=== PATIENT | female | born 1970 | race Caucasian/White ===

== ENCOUNTER → 2019-05-02 | Outpatient (CLI) | payer OTHER ==
[~2019-05-02] MED LIST: ACET500 PO; ALBU90I INH; AMOCLA875 PO; AMOX500 PO; ATEN25 PO; ATEN50 PO; AZIT250 PO; CEPH500 PO; CIPHYDOTSU OT; CLON.5 PO; CODGUAEL PO; CYCL10 PO; Crutch1 EACH MISC; DILT120 PO; DILT180 PO; DULO30 PO; DULO60; DULO60 PO; ENOX80I SC; FAMO40 PO; FURO20 PO; GUAI600T33 PO; HYDACE5 PO; IBUP800 PO; LEVO750 PO; LEVSOD100 PO; LEVSOD125 PO; MECL25 PO; MELO7.5 PO; METHI10 PO; NAPR500 PO; Naprosyn500 MG PO; Norco 5-325 Ta1 EACH PO; OXYACE5T PO; PAIN RELIEVER500 MG PO; PHENA100 PO; PRED10 PO; PROAIR RESPICL90 MCG INH; Pepcid40 MG PO; Propranolol HCl60 MG PO; RANI150 PO; ROXICODONE5 MG PO; SUCR1 PO; SULTRIDS PO; Synthroid88 MCG PO; TRAM50 PO; TYLENOL AND MOTRIN; Ultram50 MG PO; Valium5 MG PO; WARF5 PO; XARELTO PO; XARELTO20 MG PO
== END | disposition home or self-care (01) ==
LOC: LAB 14:52 → LAB SHORT 14:52
DX: K27.9 Peptic ulcer, site unspecified, unspecified as acute or chronic, without hemorrhage or perforation (principal)
CPT/HCPCS: 87338

== ENCOUNTER 2019-09-08 22:03 | Emergency (ER) | payer OTHER ==
[~2019-09-08] VITALS: Ht 170.2 cm; Wt 68.0 kg
[~2019-09-08 22:03] MED LIST changes: -Crutch1 EACH MISC; -PROAIR RESPICL90 MCG INH; -Synthroid88 MCG PO
[2019-09-08] MEDS ORDERED: Synthroid88 MCG PO (22:14)
[2019-09-08] MEDS ORDERED: CYCL10 PO (22:14)
[2019-09-08] MEDS ORDERED: PROAIR RESPICL90 MCG INH (22:15)
[2019-09-08] MEDS ORDERED: Crutch1 EACH MISC (23:52)
== END 2019-09-09 00:35 | disposition home or self-care (01) ==
LOC: ER 22:03
DX: G89.11 Acute pain due to trauma (principal); M25.562 Pain in left knee; M54.2 Cervicalgia; I48.91 Unspecified atrial fibrillation; E03.9 Hypothyroidism, unspecified; F17.210 Nicotine dependence, cigarettes, uncomplicated; Z91.048 Other nonmedicinal substance allergy status; Z91.030 Bee allergy status; Z88.8 Allergy status to other drugs, medicaments and biological substances; Z79.899 Other long term (current) drug therapy; V13.2XXA Unspecified pedal cyclist injured in collision with car, pick-up truck or van in nontraffic accident, initial encounter
CPT/HCPCS: 29505; 72040; 73502; 73562-LT; 96374-59; 96375-59; 99284-25; J2060; J3010

== ENCOUNTER 2019-10-10 20:49 | Emergency (ER) | payer OTHER ==
[~2019-10-10] VITALS: Ht 170.2 cm; Wt 68.0 kg
[~2019-10-10 20:49] MED LIST changes: +Crutch1 EACH MISC; +PROAIR RESPICL90 MCG INH; +Synthroid88 MCG PO
== END 2019-10-10 22:22 | disposition home or self-care (01) ==
LOC: ER 20:49
DX: M43.6 Torticollis (principal); E05.90 Thyrotoxicosis, unspecified without thyrotoxic crisis or storm; F17.210 Nicotine dependence, cigarettes, uncomplicated; Z88.8 Allergy status to other drugs, medicaments and biological substances; Z91.030 Bee allergy status; Z91.048 Other nonmedicinal substance allergy status; Z79.899 Other long term (current) drug therapy
CPT/HCPCS: 72125; 99283-25

== ENCOUNTER → 2020-08-27 | Outpatient (CLI) | payer OTHER ==
[2020-08-27 14:49] LABS: Source, Urine Clean Catch
[2020-08-27 15:54] LABS: Appearance, Urine Clear (Clear); Bilirubin, Urine Neg (Neg); Blood, Urine Neg (Neg); Color, Urine Yellow (P-Yellow); Glucose Qualitative, Urine Neg (Neg); Ketones, Urine Neg (Neg); Leukocyte Esterase, Urine 2+ (Neg); Nitrite, Urine Neg (Neg); Protein, Urine Neg (Neg); Urobilinogen, Urine NORM (Normal)
[2020-08-27 16:08] LABS: Bacteria Few /hpf; Red Blood Cells, Urine 0-2 /hpf (0-2); Squamous Epithelial Cells Rare /hpf (Few); Transitional Epithelial Cells Rare /hpf (0-Rare); White Blood Cells, Urine 25-50 /hpf (0-5)
[2020-08-28 10:26] LABS: Candida species (DNA Probe) Negative (NEGATIVE); G. vaginalis (DNA Probe) Positive (NEGATIVE); T. vaginalis (DNA Probe) Negative (NEGATIVE)
== END | disposition home or self-care (01) ==
LOC: LAB 14:30 → LAB SHORT 14:30
PROVIDERS: Nurse Practitioner Family
DX: N89.8 Other specified noninflammatory disorders of vagina (principal); N39.41 Urge incontinence
CPT/HCPCS: 81001; 87077; 87086; 87186; 87480; 87510; 87660

== ENCOUNTER → 2020-09-26 | Outpatient (CLI) | payer OTHER ==
[2020-09-27 11:05] LABS: Candida species (DNA Probe) Negative (NEGATIVE); G. vaginalis (DNA Probe) Positive (NEGATIVE); T. vaginalis (DNA Probe) Negative (NEGATIVE)
== END | disposition home or self-care (01) ==
LOC: LAB 14:30 → LAB SHORT 14:30
PROVIDERS: Nurse Practitioner Family
DX: N76.0 Acute vaginitis (principal)
CPT/HCPCS: 87480; 87510; 87660

== ENCOUNTER → 2020-11-27 | Outpatient (CLI) | payer OTHER ==
[2020-11-27 14:48] LABS: Source, Urine Clean Catch
[2020-11-27 16:16] LABS: Appearance, Urine Clear (Clear); Bilirubin, Urine Neg (Neg); Blood, Urine Neg (Neg); Color, Urine Yellow (P-Yellow); Glucose Qualitative, Urine Neg (Neg); Ketones, Urine 1+ (Neg); Leukocyte Esterase, Urine 1+ (Neg); Nitrite, Urine Neg (Neg); Protein, Urine 1+ (Neg); Urobilinogen, Urine NORM (Normal)
[2020-11-27 16:32] LABS: Bacteria Few /hpf; Mucus Light (0-Heavy); Red Blood Cells, Urine 0-2 /hpf (0-2); Squamous Epithelial Cells Few /hpf (Few)
[2020-11-28 10:26] LABS: Candida species (DNA Probe) Negative (NEGATIVE); G. vaginalis (DNA Probe) Positive (NEGATIVE); T. vaginalis (DNA Probe) Negative (NEGATIVE)
== END | disposition home or self-care (01) ==
LOC: LAB 14:25
PROVIDERS: Nurse Practitioner Family
DX: N30.00 Acute cystitis without hematuria (principal); N76.0 Acute vaginitis
CPT/HCPCS: 81001; 87086; 87480; 87510; 87660